=== PATIENT | female | born 1990 | race Caucasian/White ===

== ENCOUNTER 2016-08-09 19:58 | Emergency (ER) | payer OTHER ==
[2016-08-09 21:15] LABS: MEAN CORPUSCULAR HEMOGLOBIN 32.7 pg (27.0-33.0); MEAN CORPUSCULAR VOLUME 87.3 fl (80.0-96.0); RED CELL DISTRIBUTION WIDTH 12.3 % (11.5-14.5); WHITE BLOOD COUNT 11.8 K/mm3 (4.0-10.0)
[2016-08-09 21:19] LABS: MEAN CORPUSCULAR HGB CONC 37.4 g/dl (32.0-36.5)
--- NOTE | 2016-08-09 22:50 | REPUSA ---
CLINICAL HISTORY: , bleeding TECHNIQUE: Pelvic ultrasound COMPARISON: No study for comparison is available at the time of interpretation. Uterus: 8.1 x 4.1 x 4.7 cm. Normal without masses. Endometrial stripe: Early gestational sac at 5 weeks 0 days without yolk sac, without pole. Ovaries: Normal size. No masses. Pelvic fluid: None. IMPRESSION: Gestational sac at 5 weeks 0 days, without yolk sac or pole. Recommended close clin ical correlation with serial beta hCG's to establish viability, and follow-up ultrasound if beta hCG' s are increasing.
--- NOTE | 2016-08-09 23:04 | EDDOCDS ---
Physician Documentation [facility] Name: Natali Tom Age: 26 yrs Sex: Female : 1990 Arrival Date: 08/09/2016 Time: 19:58 Bed I5 / M5 Private MD: Unknown Pcp Disposition: 08/09/16 22:40 Discharged to Home/Self Care. Impression: Abnormal uterine and vaginal bleeding, unspecified, related conditions, unspecified, first trimester, Vaginitis, vulvitis and vulvovaginitis in diseases classified elsewhere - BV. - Condition is Stable. - Discharge Instructions: Bacterial Vaginosis, Threatened Miscarriage. - Prescriptions for Metronidazole 0.75 % Vaginal Gel - insert 37.5 milligrams by VAGINAL route at bedtime for 5 days; 5 tube. - Medication Reconciliation, Local Pharmacy Hours form. - Follow up: Emergency Department; When: As needed; Reason: Worsening of conditions. Follow up: Abram Herrera MD; When: Call to arrange an appointment; Reason: Wound/Symptom Recheck, Recheck today's complaints, Worsening of conditions, Continuance of care. - Problem is new. - Symptoms are unchanged. - Notes: Your HCG level today was 929. Please follow up with Dr. Herrera as discussed. Historical: - Allergies: Amoxicillin (Vomit, Rash); Motrin (Upset stomach); PENICILLINS (Rash, Vomit); SULFA (SULFONAMIDES) (Rash, Vomit); - Home Meds: 1. Vitamin Oral tab 1 tab once daily (Last dose: 08/09/2016 10:30) - PMHx: Anemia; - PSHx: Splenectomy; right knee surgery; Tonsillectomy; Adenoidectomy; Tubes in ears; - Social history: Smoking status: Patient states was never smoker of tobacco. No barriers to communication noted, The patient speaks fluent Sammarinese, Speaks appropriately for age. - Family history: Not pertinent. - : The pt / caregiver states he / she is not on anticoagulants. Home medication list is obtained from the patient. - Exposure Risk Screening:: None identified. 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 6 in. (167.64 cm) (R); Pain 3/10; 22:43 BP 110 / 62 LA Sitting (auto/reg); Pulse 89 MON; Resp 20 S; Temp 98.6(O); Pulse Ox 97% cln on R/A; Pain 0/10; 20:00 Body Mass Index 19.05 (53.52 kg, 167.64 cm) gr2 MDM: 20:24 Undress patient appropriately for examination ordered. cc10 20:24 Set up pelvic ordered. cc10 20:25 Type & Screen Ordered. EDMS 20:25 Complete Blood Count Ordered. EDMS 20:25 Hcg, Serum Quantitative Ordered. EDMS 20:25 Urinalysis Ordered. EDMS 20:25 GC & Chlamydia Amplification Ordered. EDMS 20:25 Urine Culture Ordered. EDMS 20:25 Wet Prep Ordered. EDMS 20:25 US 1st trimester Ordered. EDMS 20:47 Financial registration complete. ks16 20:48 [facility] Payment Agreement was scanned into [employer] and attached to record. ks16 22:01 Complete Blood Count Reviewed. cc10 22:01 Hcg, Serum Quantitative Reviewed. cc10 22:01 Type & Screen Reviewed. cc10 22:28 Wet Prep Reviewed. cc10 Signatures: Dispatcher [employer]Host EDMS Marilou Hernandez RN RN kmg1 Cee Nevarez RN RN jo3 Fuller, Desiree, RN RN dsf Coniski, Colin, PA-C PAJaneen cc10 [place] Nena Fofana, Reg Reg ks16 The chart was reviewed and I authenticate all verbal orders and agree with the evaluation and treatment provided.Attachments: 20:48 [facility] Payment Agreement ks16 MTDD
--- NOTE | 2016-08-09 23:04 | EDDOCDS ---
Nurse's Notes [facility] Name: Natali Tom Age: 26 yrs Sex: Female : 1990 Arrival Date: 08/09/2016 Time: 19:58 Bed I5 / M5 Private MD: Unknown Pcp Diagnosis: Abnormal uterine and vaginal bleeding, unspecified; related conditions, unspecified, first trimester;Vaginitis, vulvitis and vulvovaginitis in diseases classified elsewhere-BV Presentation: 08/09 20:06 Presenting complaint: Patient states: 5 1/2 weeks . Pt states when she went to dsf use the restroom tonight that there was blood. pt denies pain at this time. Risk factors: The patient reports no loss of conciousness prior to arrival. This patient has not had a hysterectomy. This patient has not begun menopause. Adult Sepsis Screening: The patient does not have new or worsening altered mentation. Patient's respiratory rate is less than 22. Systolic blood pressure is greater than 100. Patient has a qSOFA score of 0- Negative Sepsis Screen. Suicide/Homicide risk assessment- the patient denies having any suicidal and/or homicidal ideations and does not present with any other emotional, behavioral or mental health complaints. 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 Transition of care: patient was not received from another setting of care. 20:06 Acuity: CHUYITA Level 3 dsf 20:06 Method Of Arrival: Walkin/Carried/Asstd dsf Triage Assessment: 20:09 General: Appears in no apparent distress, Behavior is appropriate for age, cooperative. dsf Pain: Denies pain. HIV screening NA for this visit Offered previously. : Reports vaginal bleeding that is when she wiped. 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 Vitamin Oral tab 1 tab once daily (Last dose: 08/09/2016 10:30) - PMHx: Anemia; - PSHx: Splenectomy; right knee surgery; Tonsillectomy; Adenoidectomy; Tubes in ears; - Social history: Smoking status: Patient states was never smoker of tobacco. No barriers to communication noted, The patient speaks fluent Ghanaian, Speaks appropriately for age. - Family history: Not pertinent. - : The pt / caregiver states he / she is not on anticoagulants. Home medication list is obtained from the patient. - Exposure Risk Screening:: None identified. Screenin:02 Screening information is obtained from the patient. Fall risk: No risks identified. kmg1 Assistance ADL's: requires no assistance with activities of daily living. Abuse/DV Screen: The patient / caregiver reports he/she is: not in a situation that causes fear, pain or injury. Nutritional screening: No deficits noted. Advance Directives: There is no active DNR order. home support is adequate. Assessment: 22:02 General: Appears in no apparent distress, comfortable, Behavior is appropriate for age, kmg1 cooperative, pleasant. Pain: Denies pain. : Blood noted during pelvic exam. 23:02 Reassessment: Patient appears in no apparent distress at this time. Patient states jo3 feeling better. Patient states symptoms have improved. Discharged at this time. Vital Signs: 20:00 BP 138 / 74; Pulse 102; Resp 18 S; Temp 97.8(O); Pulse Ox 100% on R/A; Weight 53.52 kg gr2 (R); Height 5 ft. 6 in. (167.64 cm) (R); Pain 3/10; 22:43 BP 110 / 62 LA Sitting (auto/reg); Pulse 89 MON; Resp 20 S; Temp 98.6(O); Pulse Ox 97% cln on R/A; Pain 0/10; 20:00 Body Mass Index 19.05 (53.52 kg, 167.64 cm) gr2 Vitals: 20:00 Log In Time: August 09, 2016 at 20:00. gr2 ED Course: 20:00 Patient visited by Thierry Jackson. gr2 20:00 Unknown Pcp is Private Physician. gr2 20:00 Patient moved to Waiting gr2 20:02 Patient visited by Thierry Jackson. gr2 20:02 Patient moved to Pre RCE gr2 20:08 Triage Initiated dsf 20:10 Patient moved to Triage 2 rm 20:15 [facility] cc10 20:15 Ralph Ruiz DO is Attending Physician. cc10 20:15 Patient visited by Drew Noel PA-C. cc10 20:15 Patient visited by Drew Noel PA-C. cc10 20:17 Patient visited by Drew Noel PA-C. cc10 20:43 Complete Blood Count Sent. jmv 20:43 Hcg, Serum Quantitative Sent. jmv 20:43 Type & Screen Sent. jmv 20:43 Urine Culture Sent. jmv 20:48 [facility] Payment Agreement was scanned into [employer] and attached to record. ks16 20:48 Urinalysis Sent. jmv 20:49 GC & Chlamydia Amplification Sent. jmv 21:00 Patient moved to / [facility] 21:35 Patient visited by Cee Nevarez RN. jo3 21:58 Patient visited by Drew Noel PA-C. cc10 22:01 Wet Prep Sent. kmg1 22:01 Assist provider with pelvic exam: Set up pelvic tray. Specimens sent to lab. Performed kmg1 by Drew Noel PA-C Patient tolerated well. 22:02 The patient / caregiver is instructed regarding the plan of care and ED course. kmg1 22:40 Abram Herrera MD is Referral Physician. cc10 22:46 Patient visited by Bella Harrison PCA. cln 22:59 US 1st trimester Returned. EDMS 23:02 No IV's were initiated during this patient's visit. jo3 Order Results: Lab Order: Complete Blood Count; SPEC'M 08/09/16 20:39 Test: WHITE BLOOD COUNT; Value: 11.8; Range: 4.0-10.0; Abnormal: Above high normal; Units: K/mm3; Status: F Test: RED BLOOD COUNT; Value: 4.43; Range: 4.00-5.40; Units: M/mm3; Status: F Test: HEMOGLOBIN; Value: 14.5; Range: 12.0-16.0; Units: g/dl; Status: F Test: HEMATOCRIT; Value: 38.7; Range: 36.0-47.0; Units: %; Status: F Test: MEAN CORPUSCULAR VOLUME; Value: 87.3; Range: 80.0-96.0; Units: fl; Status: F Test: MEAN CORPUSCULAR HEMOGLOBIN; Value: 32.7; Range: 27.0-33.0; Units: pg; Status: F Test: MEAN CORPUSCULAR HGB CONC; Value: 37.4; Range: 32.0-36.5; Abnormal: Above high normal; Units: g/dl; Status: F Test: RED CELL DISTRIBUTION WIDTH; Value: 12.3; Range: 11.5-14.5; Units: %; Status: F Test: PLATELET COUNT, AUTOMATED; Value: 460; Range: 150-450; Abnormal: Above high normal; Units: k/mm3; Status: F Lab Order: Hcg, Serum Quantitative; SPEC'M 08/09/16 20:39 Test: HCG, SERUM QUANTITATIVE; Value: 929; Units: MIU/ML; Status: F Test Note: ; GESTATIONAL AGE APPROXIMATE HCG RANGE (MIU/ML) 0.2-1 WEEK 5-50 1-2 WEEKS 50-500 2-3 WEEKS 100-5,000 3-4 WEEKS 500-10,000 4-5 WEEKS 1,000-50,000 5-6 WEEKS 10,000-100,000 6-8 WEEKS 15,000-200,000 2-3 MONTHS 10,000-100,000 NON FEMALES LESS THAN 3.0 Patient samples may contain human heterophilic antibodies that could react with immunoassays to give falsely elevated or depressed results. This assay has been designed to minimize interference from heterophilic antibodies. Elevated hCG levels have also been associated with trophoblastic disease and nontrophoblastic neoplasms. The possibility of having these diseases should be considered before a diagnosis of is made. This test is not intended for use as a surrogate marker for aiding in the diagnosis or monitoring the treatment of cancer patients. [employer] methodology. Lab Order: Type & Screen; SPEC'08/09/16 20:39 Test: BLOOD TYPE; Value: AB POS; Status: F Test: AB SCREEN (INDIRECT MARCIO)GEL; Value: NEGATIVE; Status: F Lab Order: Urinalysis; SPEC'08/09/16 20:39 Test: APPEARANCE, URINE; Value: HAZY; Range: CLEAR; Status: F Test: COLOR, URINE; Value: YELLOW; Range: YELLOW; Status: F Test: PH,URINE; Value: 6.0; Range: 5.0-9.0; Units: UNITS; Status: F Test: SPECIFIC GRAVITY URINE AUTO; Value: 1.005; Range: 1.002-1.035; Status: F Test: PROTEIN, URINE AUTO; Value: NEGATIVE; Range: NEGATIVE; Units: mg/dL; Status: F Test: GLUCOSE, URINE (UA) AUTO; Value: NEGATIVE; Range: NEGATIVE; Units: mg/dL; Status: F Test: KETONE, URINE AUTO; Value: NEGATIVE; Range: NEGATIVE; Units: mg/dL; Status: F Test: UROBILINOGEN, URINE AUTO; Value: 0.2; Range: 0.0-2.0; Units: mg/dL; Status: F Test: BILIRUBIN, URINE AUTO; Value: NEGATIVE; Range: NEGATIVE; Status: F Test: NITRITE, URINE AUTO; Value: NEGATIVE; Range: NEGATIVE; Status: F Test: LEUKOCYTE ESTERASE, URINE AUTO; Value: NEGATIVE; Range: NEGATIVE; Status: F Test: BLOOD, URINE BLOOD; Value: 2+; Range: NEGATIVE; Abnormal: Above high normal; Status: F Test: WBC, URINE AUTO; Value: 1; Range: 0-3; Units: /HPF; Status: F Test: RBC, URINE AUTO; Value: 2; Range: 0-3; Units: /HPF; Status: F Test: BACTERIA, URINE AUTO; Value: 1+; Range: NEGATIVE; Abnormal: Above high normal; Status: F Test: SQUAMOUS EPITHELIAL CELL UR AU; Value: 3; Range: 0-6; Units: /HPF; Status: F Test: HYALINE CAST, URINE AUTO; Value: 0; Range: 0-1; Units: /LPF; Status: F Lab Order: Wet Prep; SPEC'M 08/09/16 20:39 Test: WET PREP; Value: WET PREP RESULT; Status: F Test: WET PREP; Value: MANY EPITHELIAL CELLS PRESENT; Status: F Test: WET PREP; Value: MODERATE WBC; Status: F Test: WET PREP; Value: MANY SHORT RODS PRESENT; Status: F Test: WET PREP; Value: MANY CLUE CELLS PRESENT; Status: F Test: WET PREP; Value: FEW LONG RODS PRESENT; Status: F Test: WET PREP; Value: FEW RBC; Status: F Test: WET PREP; Value: Comments:; Status: F Test Note: ; Specimen did not meet the 1 hour time limit from collection to examination. Trichomonas vaginalis loses motility quickly therefore, samples need to be examined within 1 hour of collection to optimally identify this organism. Radiology Order: US 1st trimester Test: US 1st trimester REASON FOR EXAMINATION: Bleeding; ; CLINICAL HISTORY: , bleeding; ; TECHNIQUE: Pelvic ultrasound; ; COMPARISON: No study for comparison is available at the time of interpretation.; ; Uterus: 8.1 x 4.1 x 4.7 cm. Normal without masses.; Endometrial stripe: Early gestational sac at 5 weeks 0 days without yolk sac, without pole.; Ovaries: Normal size. No masses.; Pelvic fluid: None.; ; IMPRESSION: Gestational sac at 5 weeks 0 days, without yolk sac or pole. Recommended close clin; ical correlation with serial beta hCG's to establish viability, and follow-up ultrasound if beta hCG'; s are increasing.; ; Outcome: 22:40 Discharge ordered by Provider. cc10 23:02 Discharge Assessment: Patient awake, alert and oriented x 3. No cognitive and/or jo3 functional deficits noted. Patient verbalized understanding of disposition instructions. patient administered narcotics - no. The following High Risk Discharge criteria are identified: None. Discharged to home ambulatory, with significant other. Condition: stable Condition: improved. Discharge instructions given to patient, Instructed on discharge instructions, follow up and referral plans. medication usage, Demonstrated understanding of instructions, medications, Pt was receptive of discharge instructions/ teaching. Prescriptions given X 1. No special radiology studies were completed. Property sent home with patient. 23:03 Patient left the ED. jo3 Signatures: Dispatcher [employer] EDMS Marilou Hernandez RN RN kmg1 Gee Ortiz RN RN cz Helmerci, Jennifer, RN RN jo3 Carolina Lin, DYE BOARDING MACHINE OPERATOR DYE BOARDING MACHINE OPERATOR Cherie Dumont RN RN dsf Thierry Jackson gr2 Drew Noel, PA-C PA-C cc10 [place] Ffoana, Reg Reg ks16 Harrison, Crystal, DYE BOARDING MACHINE OPERATOR DYE BOARDING MACHINE OPERATOR cln Stevenson, Chaim, DYE BOARDING MACHINE OPERATOR DYE BOARDING MACHINE OPERATOR jmv MARLEYD
--- NOTE | 2016-08-12 11:57 | EDDOCDS ---
Physician Documentation [facility] Name: Natali Tom Age: 26 yrs Sex: Female : 1990 Arrival Date: 08/09/2016 Time: 19:58 Bed I5 / M5 Private MD: Unknown Pcp Disposition: 08/09/16 22:40 Discharged to Home/Self Care. Impression: Abnormal uterine and vaginal bleeding, unspecified, related conditions, unspecified, first trimester, Vaginitis, vulvitis and vulvovaginitis in diseases classified elsewhere - BV. - Condition is Stable. - Discharge Instructions: Bacterial Vaginosis, Threatened Miscarriage. - Prescriptions for Metronidazole 0.75 % Vaginal Gel - insert 37.5 milligrams by VAGINAL route at bedtime for 5 days; 5 tube. - Medication Reconciliation, Local Pharmacy Hours form. - Follow up: Emergency Department; When: As needed; Reason: Worsening of conditions. Follow up: Abram Herrera MD; When: Call to arrange an appointment; Reason: Wound/Symptom Recheck, Recheck today's complaints, Worsening of conditions, Continuance of care. - Problem is new. - Symptoms are unchanged. - Notes: Your HCG level today was 929. Please follow up with Dr. Herrera as discussed. Historical: - Allergies: Amoxicillin (Vomit, Rash); Motrin (Upset stomach); PENICILLINS (Rash, Vomit); SULFA (SULFONAMIDES) (Rash, Vomit); - Home Meds: 1. Vitamin Oral tab 1 tab once daily (Last dose: 08/09/2016 10:30) - PMHx: Anemia; - PSHx: Splenectomy; right knee surgery; Tonsillectomy; Adenoidectomy; Tubes in ears; - Social history: Smoking status: Patient states was never smoker of tobacco. No barriers to communication noted, The patient speaks fluent [place] Islander, Speaks appropriately for age. - Family history: Not pertinent. - : The pt / caregiver states he / she is not on anticoagulants. Home medication list is obtained from the patient. - Exposure Risk Screening:: None identified. 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 6 in. (167.64 cm) (R); Pain 3/10; 22:43 BP 110 / 62 LA Sitting (auto/reg); Pulse 89 MON; Resp 20 S; Temp 98.6(O); Pulse Ox 97% cln on R/A; Pain 0/10; 20:00 Body Mass Index 19.05 (53.52 kg, 167.64 cm) gr2 MDM: 20:24 Undress patient appropriately for examination ordered. cc10 20:24 Set up pelvic ordered. cc10 20:25 Type & Screen Ordered. EDMS 20:25 Complete Blood Count Ordered. EDMS 20:25 Hcg, Serum Quantitative Ordered. EDMS 20:25 Urinalysis Ordered. EDMS 20:25 GC & Chlamydia Amplification Ordered. EDMS 20:25 Urine Culture Ordered. EDMS 20:25 Wet Prep Ordered. EDMS 20:25 US 1st trimester Ordered. EDMS 20:47 Financial registration complete. ks 20:48 [facility] Payment Agreement was scanned into [employer] and attached to record. ks16 22:01 Complete Blood Count Reviewed. cc10 22:01 Hcg, Serum Quantitative Reviewed. cc10 22:01 Type & Screen Reviewed. cc10 22:28 Wet Prep Reviewed. cc10 08/10 08:32 T-Sheet-- Draft Copy was scanned into [employer] and attached to record. [facility] Signatures: Dispatcher [employer] EDWY Marilou Hernandez RN RN kmg1 Cee Nevarez RN RN jo3 Fuller, DesireeRN RN Drew Solis, PA-C PA-C cc10 [place] Fof[place], Reg Reg pa16 Jimena Farrell [facility] The chart was reviewed and I authenticate all verbal orders and agree with the evaluation and treatment provided.Attachments: 08/09 20:48 [facility] Payment Agreement 16 08/10 08:32 T-Sheet-- Draft Copy [facility] Chart Complete MTDD
--- NOTE | 2016-08-12 11:57 | EDDOCDS ---
Physician Documentation [facility] Name: Natali Tom Age: 26 yrs Sex: Female : 1990 Arrival Date: 08/09/2016 Time: 19:58 Bed I5 / M5 Private MD: Unknown Pcp Disposition: 08/09/16 22:40 Discharged to Home/Self Care. Impression: Abnormal uterine and vaginal bleeding, unspecified, related conditions, unspecified, first trimester, Vaginitis, vulvitis and vulvovaginitis in diseases classified elsewhere - BV. - Condition is Stable. - Discharge Instructions: Bacterial Vaginosis, Threatened Miscarriage. - Prescriptions for Metronidazole 0.75 % Vaginal Gel - insert 37.5 milligrams by VAGINAL route at bedtime for 5 days; 5 tube. - Medication Reconciliation, Local Pharmacy Hours form. - Follow up: Emergency Department; When: As needed; Reason: Worsening of conditions. Follow up: Abram Herrera MD; When: Call to arrange an appointment; Reason: Wound/Symptom Recheck, Recheck today's complaints, Worsening of conditions, Continuance of care. - Problem is new. - Symptoms are unchanged. - Notes: Your HCG level today was 929. Please follow up with Dr. Herrera as discussed. Historical: - Allergies: Amoxicillin (Vomit, Rash); Motrin (Upset stomach); PENICILLINS (Rash, Vomit); SULFA (SULFONAMIDES) (Rash, Vomit); - Home Meds: 1. Vitamin Oral tab 1 tab once daily (Last dose: 08/09/2016 10:30) - PMHx: Anemia; - PSHx: Splenectomy; right knee surgery; Tonsillectomy; Adenoidectomy; Tubes in ears; - Social history: Smoking status: Patient states was never smoker of tobacco. No barriers to communication noted, The patient speaks fluent Maltese, Speaks appropriately for age. - Family history: Not pertinent. - : The pt / caregiver states he / she is not on anticoagulants. Home medication list is obtained from the patient. - Exposure Risk Screening:: None identified. 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 6 in. (167.64 cm) (R); Pain 3/10; 22:43 BP 110 / 62 LA Sitting (auto/reg); Pulse 89 MON; Resp 20 S; Temp 98.6(O); Pulse Ox 97% cln on R/A; Pain 0/10; 20:00 Body Mass Index 19.05 (53.52 kg, 167.64 cm) gr2 MDM: 20:24 Undress patient appropriately for examination ordered. cc10 20:24 Set up pelvic ordered. cc10 20:25 Type & Screen Ordered. EDMS 20:25 Complete Blood Count Ordered. EDMS 20:25 Hcg, Serum Quantitative Ordered. EDMS 20:25 Urinalysis Ordered. EDMS 20:25 GC & Chlamydia Amplification Ordered. EDMS 20:25 Urine Culture Ordered. EDMS 20:25 Wet Prep Ordered. EDMS 20:25 US 1st trimester Ordered. EDMS 20:47 Financial registration complete. ks 20:48 [facility] Payment Agreement was scanned into [employer] and attached to record. ks16 22:01 Complete Blood Count Reviewed. cc10 22:01 Hcg, Serum Quantitative Reviewed. cc10 22:01 Type & Screen Reviewed. cc10 22:28 Wet Prep Reviewed. cc10 08/10 08:32 T-Sheet-- Draft Copy was scanned into [employer] and attached to record. [facility] Signatures: Dispatcher [employer] EDNE Marilou Hernandez RN RN kmg1 Cee Nevarez RN RN jo3 Fuller, DesireeRN RN Drew Solis, PA-C PA-C cc10 [place] Fof[place], Reg Reg dc16 Jimena Farrell [facility] The chart was reviewed and I authenticate all verbal orders and agree with the evaluation and treatment provided.Attachments: 08/09 20:48 [facility] Payment Agreement 16 08/10 08:32 T-Sheet-- Draft Copy [facility] Chart Complete MTDD
--- NOTE | 2016-08-12 11:57 | EDDOCDS ---
Nurse's Notes [facility] Name: Natali Tom Age: 26 yrs Sex: Female : 1990 Arrival Date: 08/09/2016 Time: 19:58 Bed I5 / M5 Private MD: Unknown Pcp Diagnosis: Abnormal uterine and vaginal bleeding, unspecified; related conditions, unspecified, first trimester;Vaginitis, vulvitis and vulvovaginitis in diseases classified elsewhere-BV Presentation: 08/09 20:06 Presenting complaint: Patient states: 5 1/2 weeks . Pt states when she went to dsf use the restroom tonight that there was blood. pt denies pain at this time. Risk factors: The patient reports no loss of conciousness prior to arrival. This patient has not had a hysterectomy. This patient has not begun menopause. Adult Sepsis Screening: The patient does not have new or worsening altered mentation. Patient's respiratory rate is less than 22. Systolic blood pressure is greater than 100. Patient has a qSOFA score of 0- Negative Sepsis Screen. Suicide/Homicide risk assessment- the patient denies having any suicidal and/or homicidal ideations and does not present with any other emotional, behavioral or mental health complaints. Status: Patient is not a community service manager or dependent. Transition of care: patient was not received from another setting of care. 20:06 Acuity: CHUYITA Level 3 dsf 20:06 Method Of Arrival: Walkin/Carried/Asstd dsf Triage Assessment: 20:09 General: Appears in no apparent distress, Behavior is appropriate for age, cooperative. dsf Pain: Denies pain. HIV screening NA for this visit Offered previously. : Reports vaginal bleeding that is when she wiped. NICKER AND BREAKER: 20:09 LMP 07/01/2016, Verified, EDC 04/07/2017, Gestational age from LMP: 5 weeks 5 dsf days Historical: - Allergies: Amoxicillin (Vomit, Rash); Motrin (Upset stomach); PENICILLINS (Rash, Vomit); SULFA (SULFONAMIDES) (Rash, Vomit); - Home Meds: 1. Vitamin Oral tab 1 tab once daily (Last dose: 08/09/2016 10:30) - PMHx: Anemia; - PSHx: Splenectomy; right knee surgery; Tonsillectomy; Adenoidectomy; Tubes in ears; - Social history: Smoking status: Patient states was never smoker of tobacco. No barriers to communication noted, The patient speaks fluent Beninese, Speaks appropriately for age. - Family history: Not pertinent. - : The pt / caregiver states he / she is not on anticoagulants. Home medication list is obtained from the patient. - Exposure Risk Screening:: None identified. Screenin:02 Screening information is obtained from the patient. Fall risk: No risks identified. kmg1 Assistance ADL's: requires no assistance with activities of daily living. Abuse/DV Screen: The patient / caregiver reports he/she is: not in a situation that causes fear, pain or injury. Nutritional screening: No deficits noted. Advance Directives: There is no active DNR order. home support is adequate. Assessment: 22:02 General: Appears in no apparent distress, comfortable, Behavior is appropriate for age, kmg1 cooperative, pleasant. Pain: Denies pain. : Blood noted during pelvic exam. 23:02 Reassessment: Patient appears in no apparent distress at this time. Patient states jo3 feeling better. Patient states symptoms have improved. Discharged at this time. Vital Signs: 20:00 BP 138 / 74; Pulse 102; Resp 18 S; Temp 97.8(O); Pulse Ox 100% on R/A; Weight 53.52 kg gr2 (R); Height 5 ft. 6 in. (167.64 cm) (R); Pain 3/10; 22:43 BP 110 / 62 LA Sitting (auto/reg); Pulse 89 MON; Resp 20 S; Temp 98.6(O); Pulse Ox 97% cln on R/A; Pain 0/10; 20:00 Body Mass Index 19.05 (53.52 kg, 167.64 cm) gr2 Vitals: 20:00 Log In Time: August 09, 2016 at 20:00. gr2 ED Course: 20:00 Patient visited by Thierry Jackson. gr2 20:00 Unknown Pcp is Private Physician. gr2 20:00 Patient moved to Waiting gr2 20:02 Patient visited by Thierry Jackson. gr2 20:02 Patient moved to Pre RCE gr2 20:08 Triage Initiated dsf 20:10 Patient moved to Triage 2 rm 20:15 [facility] cc[facility] 20:15 Ralph Ruiz DO is Attending Physician. cc10 20:15 Patient visited by Drew Noel PA-C. cc10 20:15 Patient visited by Drew Noel PA-C. cc10 20:17 Patient visited by Drew Noel PA-C. cc10 20:43 Complete Blood Count Sent. jmv 20:43 Hcg, Serum Quantitative Sent. jmv 20:43 Type & Screen Sent. jmv 20:43 Urine Culture Sent. jmv 20:48 [facility] [place] Payment Agreement was scanned into [employer] and attached to record. ks16 20:48 Urinalysis Sent. jmv 20:49 GC & Chlamydia Amplification Sent. jmv 21:00 Patient moved to [address] 21:35 Patient visited by Cee Nevarez RN. jo3 21:58 Patient visited by Drew Noel PA-C. cc10 22:01 Wet Prep Sent. kmg1 22:01 Assist provider with pelvic exam: Set up pelvic tray. Specimens sent to lab. Performed kmg1 by Drew Noel PA-C Patient tolerated well. 22:02 The patient / caregiver is instructed regarding the plan of care and ED course. kmg1 22:40 Abram Herrera MD is Referral Physician. cc10 22:46 Patient visited by Bella Harrison PCA. cln 22:59 US 1st trimester Returned. EDMS 23:02 No IV's were initiated during this patient's visit. jo3 08/10 08:32 T-Sheet-- Draft Copy was scanned into [employer] and attached to record. [facility] Order Results: Lab Order: Complete Blood Count; SPEC'M 08/09/16 20:39 Test: WHITE BLOOD COUNT; Value: 11.8; Range: 4.0-10.0; Abnormal: Above high normal; Units: K/mm3; Status: F Test: RED BLOOD COUNT; Value: 4.43; Range: 4.00-5.40; Units: M/mm3; Status: F Test: HEMOGLOBIN; Value: 14.5; Range: 12.0-16.0; Units: g/dl; Status: F Test: HEMATOCRIT; Value: 38.7; Range: 36.0-47.0; Units: %; Status: F Test: MEAN CORPUSCULAR VOLUME; Value: 87.3; Range: 80.0-96.0; Units: fl; Status: F Test: MEAN CORPUSCULAR HEMOGLOBIN; Value: 32.7; Range: 27.0-33.0; Units: pg; Status: F Test: MEAN CORPUSCULAR HGB CONC; Value: 37.4; Range: 32.0-36.5; Abnormal: Above high normal; Units: g/dl; Status: F Test: RED CELL DISTRIBUTION WIDTH; Value: 12.3; Range: 11.5-14.5; Units: %; Status: F Test: PLATELET COUNT, AUTOMATED; Value: 460; Range: 150-450; Abnormal: Above high normal; Units: k/mm3; Status: F Lab Order: Hcg, Serum Quantitative; SPEC'M 08/09/16 20:39 Test: HCG, SERUM QUANTITATIVE; Value: 929; Units: MIU/ML; Status: F Test Note: ; GESTATIONAL AGE APPROXIMATE HCG RANGE (MIU/ML) 0.2-1 WEEK 5-50 1-2 WEEKS 50-500 2-3 WEEKS 100-5,000 3-4 WEEKS 500-10,000 4-5 WEEKS 1,000-50,000 5-6 WEEKS 10,000-100,000 6-8 WEEKS 15,000-200,000 2-3 MONTHS 10,000-100,000 NON FEMALES LESS THAN 3.0 Patient samples may contain human heterophilic antibodies that could react with immunoassays to give falsely elevated or depressed results. This assay has been designed to minimize interference from heterophilic antibodies. Elevated hCG levels have also been associated with trophoblastic disease and nontrophoblastic neoplasms. The possibility of having these diseases should be considered before a diagnosis of is made. This test is not intended for use as a surrogate marker for aiding in the diagnosis or monitoring the treatment of cancer patients. [employer] methodology. Lab Order: Type & Screen; SPEC'M 08/09/16 20:39 Test: BLOOD TYPE; Value: AB POS; Status: F Test: AB SCREEN (INDIRECT MARCIO)GEL; Value: NEGATIVE; Status: F Lab Order: Urinalysis; SPEC'M 08/09/16 20:39 Test: APPEARANCE, URINE; Value: HAZY; Range: CLEAR; Status: F Test: COLOR, URINE; Value: YELLOW; Range: YELLOW; Status: F Test: PH,URINE; Value: 6.0; Range: 5.0-9.0; Units: UNITS; Status: F Test: SPECIFIC GRAVITY URINE AUTO; Value: 1.005; Range: 1.002-1.035; Status: F Test: PROTEIN, URINE AUTO; Value: NEGATIVE; Range: NEGATIVE; Units: mg/dL; Status: F Test: GLUCOSE, URINE (UA) AUTO; Value: NEGATIVE; Range: NEGATIVE; Units: mg/dL; Status: F Test: KETONE, URINE AUTO; Value: NEGATIVE; Range: NEGATIVE; Units: mg/dL; Status: F Test: UROBILINOGEN, URINE AUTO; Value: 0.2; Range: 0.0-2.0; Units: mg/dL; Status: F Test: BILIRUBIN, URINE AUTO; Value: NEGATIVE; Range: NEGATIVE; Status: F Test: NITRITE, URINE AUTO; Value: NEGATIVE; Range: NEGATIVE; Status: F Test: LEUKOCYTE ESTERASE, URINE AUTO; Value: NEGATIVE; Range: NEGATIVE; Status: F Test: BLOOD, URINE BLOOD; Value: 2+; Range: NEGATIVE; Abnormal: Above high normal; Status: F Test: WBC, URINE AUTO; Value: 1; Range: 0-3; Units: /HPF; Status: F Test: RBC, URINE AUTO; Value: 2; Range: 0-3; Units: /HPF; Status: F Test: BACTERIA, URINE AUTO; Value: 1+; Range: NEGATIVE; Abnormal: Above high normal; Status: F Test: SQUAMOUS EPITHELIAL CELL UR AU; Value: 3; Range: 0-6; Units: /HPF; Status: F Test: HYALINE CAST, URINE AUTO; Value: 0; Range: 0-1; Units: /LPF; Status: F Lab Order: Urine Culture; SPEC'M 08/09/16 20:39 Test: URINE CULTURE; Value: URINE CULTURE RESULT NO GROWTH CLINICAL SIGNIFICANCE 1 ORGANISM; Status: F Lab Order: Wet Prep; SPEC'M 08/09/16 20:39 Test: WET PREP; Value: WET PREP RESULT; Status: F Test: WET PREP; Value: MANY EPITHELIAL CELLS PRESENT; Status: F Test: WET PREP; Value: MODERATE WBC; Status: F Test: WET PREP; Value: MANY SHORT RODS PRESENT; Status: F Test: WET PREP; Value: MANY CLUE CELLS PRESENT; Status: F Test: WET PREP; Value: FEW LONG RODS PRESENT; Status: F Test: WET PREP; Value: FEW RBC; Status: F Test: WET PREP; Value: Comments:; Status: F Test Note: ; Specimen did not meet the 1 hour time limit from collection to examination. Trichomonas vaginalis loses motility quickly therefore, samples need to be examined within 1 hour of collection to optimally identify this organism. Lab Order: GC & Chlamydia Amplification; SPEC'M 08/09/16 20:39 Test: CHLAMYDIA DNA AMPLIFICATION; Value: NEGATIVE; Range: NEGATIVE; Status: F Test: GC DNA AMPLIFICATION; Value: NEGATIVE; Range: NEGATIVE; Status: F Radiology Order: US 1st trimester Test: US 1st trimester REASON FOR EXAMINATION: Bleeding; ; CLINICAL HISTORY: , bleeding; ; TECHNIQUE: Pelvic ultrasound; ; COMPARISON: No study for comparison is available at the time of interpretation.; ; Uterus: 8.1 x 4.1 x 4.7 cm. Normal without masses.; Endometrial stripe: Early gestational sac at 5 weeks 0 days without yolk sac, without pole.; Ovaries: Normal size. No masses.; Pelvic fluid: None.; ; IMPRESSION: Gestational sac at 5 weeks 0 days, without yolk sac or pole. Recommended close clin; ical correlation with serial beta hCG's to establish viability, and follow-up ultrasound if beta hCG'; s are increasing.; ; Outcome: 08/09 22:40 Discharge ordered by Provider. cc10 23:02 Discharge Assessment: Patient awake, alert and oriented x 3. No cognitive and/or jo3 functional deficits noted. Patient verbalized understanding of disposition instructions. patient administered narcotics - no. The following High Risk Discharge criteria are identified: None. Discharged to home ambulatory, with significant other. Condition: stable Condition: improved. Discharge instructions given to patient, Instructed on discharge instructions, follow up and referral plans. medication usage, Demonstrated understanding of instructions, medications, Pt was receptive of discharge instructions/ teaching. Prescriptions given X 1. No special radiology studies were completed. Property sent home with patient. 23:03 Patient left the ED. jo3 Signatures: Dispatcher [employer] EDMS Marilou Hernandez, RN RN kmg1 Gee Ortiz RN RN cz Helmerci, Jennifer, RN RN jo3 Riley, [place], FLIGHT COMMUNICATIONS OPERATOR FLIGHT COMMUNICATIONS OPERATOR Cherie Dumont RN RN dsf Thierry Jackson gr2 Drew Noel, PA-C PA-C cc10 [place], Reg Reg ks16 Bella Harrison, FLIGHT COMMUNICATIONS OPERATOR FLIGHT COMMUNICATIONS OPERATOR sven Farrell, Chaim Casey, FLIGHT COMMUNICATIONS OPERATOR FLIGHT COMMUNICATIONS OPERATOR jmv Chart Complete MTDD
== END 2016-08-09 23:03 | disposition home or self-care (01) ==
LOC: M ED 19:58
DX: O20.0 Threatened abortion (principal); O23.591 Infection of other part of genital tract in pregnancy, first trimester; O99.011 Anemia complicating pregnancy, first trimester; Z3A.01 Less than 8 weeks gestation of pregnancy

== ENCOUNTER → 2016-09-01 | Outpatient (REF) | payer OTHER | LOC: M LAB REF 12:38 | PROVIDERS: ATTEND Advanced Practice Midwife | DX: O03.4 Incomplete spontaneous abortion without complication (principal) ==

== ENCOUNTER → 2016-10-20 | Outpatient (REF) | payer OTHER | LOC: M LAB REF 20:50 | PROVIDERS: ATTEND Physician Assistant | DX: J02.9 Acute pharyngitis, unspecified (principal) ==

== ENCOUNTER → 2024-02-09 | Outpatient (CLI) | payer OTHER ==
[2024-02-09 17:32] LABS: HEMATOCRIT 40.6 % (36.0-47.0); HEMOGLOBIN 14.6 g/dl (12.0-15.5); MEAN CORPUSCULAR HEMOGLOBIN 32.6 pg (27.0-33.0); MEAN CORPUSCULAR VOLUME 90.6 fl (80.0-96.0); PLATELET COUNT, AUTOMATED 473 10^3/uL (150-450); RED BLOOD COUNT 4.48 10^6/uL (4.00-5.40); WHITE BLOOD COUNT 15.6 10^3/uL (4.0-10.0)
[2024-02-09 18:26] LABS: HIV 1&2 SCREEN NEGATIVE (NEGATIVE)
[2024-02-09 18:34] LABS: HEPATITIS C VIRUS ABY INDEX 0.03 INDEX (<0.8)
[2024-02-09 19:35] LABS: GC DNA AMPLIFICATION NEGATIVE (NEGATIVE)
== END ==
LOC: M PLALAB 15:38
PROVIDERS: ATTEND Advanced Practice Midwife
DX: Z34.91 Encounter for supervision of normal pregnancy, unspecified, first trimester (principal)

== ENCOUNTER → 2024-03-28 | Outpatient (CLI) | payer OTHER | LOC: M WHC 09:48 | PROVIDERS: ATTEND Obstetrics & Gynecology | DX: Z34.92 Encounter for supervision of normal pregnancy, unspecified, second trimester (principal); Z3A.19 19 weeks gestation of pregnancy ==

== ENCOUNTER → 2024-05-17 | Outpatient (CLI) | payer OTHER | LOC: M WHC 14:55 | PROVIDERS: ATTEND Obstetrics & Gynecology | DX: O44.40 Low lying placenta NOS or without hemorrhage, unspecified trimester (principal); Z3A.26 26 weeks gestation of pregnancy ==

== ENCOUNTER → 2024-05-17 | Outpatient (CLI) | payer OTHER ==
[2024-05-17 17:54] LABS: HEMATOCRIT 39.8 % (36.0-47.0); HEMOGLOBIN 13.9 g/dl (12.0-15.5); MEAN CORPUSCULAR HEMOGLOBIN 32.5 pg (27.0-33.0); MEAN CORPUSCULAR HGB CONC 34.9 g/dl (32.0-36.5); PLATELET COUNT, AUTOMATED 455 10^3/uL (150-450); RED BLOOD COUNT 4.28 10^6/uL (4.00-5.40); WHITE BLOOD COUNT 13.1 10^3/uL (4.0-10.0)
[2024-05-17 18:19] LABS: GLUCOSE CHALLENGE TEST 1 HOUR 110 MG/DL (LESS THAN 140)
[2024-05-17 18:46] LABS: GC DNA AMPLIFICATION NEGATIVE (NEGATIVE)
[2024-05-17 18:55] LABS: HIV 1&2 SCREEN NEGATIVE (NEGATIVE)
[2024-05-17 19:02] LABS: HEPATITIS C VIRUS ABY INDEX 0.07 INDEX (<0.8)
== END ==
LOC: M PLALAB 14:53
PROVIDERS: ATTEND Obstetrics & Gynecology
DX: Z34.92 Encounter for supervision of normal pregnancy, unspecified, second trimester (principal); Z3A.00 Weeks of gestation of pregnancy not specified

== ENCOUNTER 2024-05-23 17:19 | Outpatient (CLI) | payer OTHER ==
[~2024-05-23] VITALS: Ht 175.3 cm; Wt 69.0 kg
[2024-05-23 17:39] VITALS: BP 110/53
[2024-05-23] MEDS ORDERED: PRENTAB9 PO (17:51)
[2024-05-23 18:10] VITALS: O2SAT 97
[2024-05-23 18:25] VITALS: O2SAT 97
[2024-05-23 18:30] VITALS: O2SAT 96
[2024-05-23 18:45] VITALS: O2SAT 97
[2024-05-23 18:47] VITALS: BP 107/59; O2SAT 97
== END 2024-05-23 18:50 | disposition home or self-care (01) ==
LOC: M LDO 17:19
PROVIDERS: ATTEND Advanced Practice Midwife
DX: O26.892 Other specified pregnancy related conditions, second trimester (principal); O26.22 Pregnancy care for patient with recurrent pregnancy loss, second trimester; O99.119 Other diseases of the blood and blood-forming organs and certain disorders involving the immune mechanism complicating pregnancy, unspecified trimester; R06.02 Shortness of breath; R51.9 Headache, unspecified; R05.9 Cough, unspecified; D75.838 Other thrombocytosis; Z3A.27 27 weeks gestation of pregnancy
CPT/HCPCS: 59025; 87486; 87581; 87633; 87798; G0463

== ENCOUNTER → 2024-05-23 | Emergency (ER) | payer OTHER ==
[~2024-05-23] VITALS: Ht 175.3 cm; Wt 68.8 kg
[~2024-05-23] MED LIST: PRENTAB9 PO
[2024-05-23 19:03] VITALS: BP 125/61; TEMP 98.6
[2024-05-23 19:13] VITALS: O2SAT 99
== END | disposition left against medical advice (07) ==
LOC: M ED 18:58
DX: Z53.21 Procedure and treatment not carried out due to patient leaving prior to being seen by health care provider (principal)

== ENCOUNTER → 2024-06-13 | Outpatient (CLI) | payer OTHER ==
[2024-06-13 12:52] LABS: BASO # 0.1 10^3/uL (0.0-0.2); BASO % 0.7 % (0.0-1.0); EOS # 0.1 10^3/uL (0.0-0.5); EOS % 1.2 % (0.0-3.0); HEMATOCRIT 37.6 % (36.0-47.0); HEMOGLOBIN 13.2 g/dl (12.0-15.5); LYMPH # 2.3 10^3/uL (1.5-5.0); LYMPH % 19.9 % (24.0-44.0); MEAN CORPUSCULAR HEMOGLOBIN 32.8 pg (27.0-33.0); MEAN CORPUSCULAR HGB CONC 35.1 g/dl (32.0-36.5); MEAN CORPUSCULAR VOLUME 93.3 fl (80.0-96.0); MONO # 0.8 10^3/uL (0.0-0.8); MONO % 7.1 % (2.0-8.0); NEUTROPHILS # 8.2 10^3/uL (1.5-8.5); NEUTROPHILS % 70.4 % (36.0-66.0); PLATELET COUNT, AUTOMATED 415 10^3/uL (150-450); RED BLOOD COUNT 4.03 10^6/uL (4.00-5.40); WHITE BLOOD COUNT 11.6 10^3/uL (4.0-10.0)
[2024-06-13 13:27] LABS: FERRITIN 9.3 NG/ML (7.3-270.7)
[2024-06-13 13:28] LABS: PERCENT SATURATION 11.6 % (13.2-45.0)
== END ==
LOC: M PLALAB 11:20
PROVIDERS: ATTEND Internal Medicine Hematology
DX: D75.839 Thrombocytosis, unspecified (principal)

== ENCOUNTER 2024-06-27 14:45 | Outpatient (CLI) | payer OTHER ==
[~2024-06-27] VITALS: Ht 175.3 cm; Wt 69.5 kg
[~2024-06-27 14:45] MED LIST changes: +ALBUTEROL SULFATE 2.5MG/0.5ML INH NEB SOLN INH PRN; +EPINEPHrine INJ 1 MG/ML 1ML AMP IM PRN; +NS 1,000 ML IV SCH; +diphenhydrAMINE 50MG/ML VIAL IV PRN; +methylPREDNISolone 125MG 2ML VIAL IV PRN
[2024-06-27 15:00] VITALS: BP 118/59; O2SAT 96
[2024-06-27] MEDS: IRON SUCROSE 300 MG in NS 250 ML IV ONE (15:40)
[2024-06-27 17:33] VITALS: BP 131/69; O2SAT 97
== END 2024-06-27 17:35 ==
LOC: M INFU 14:45
PROVIDERS: ATTEND Internal Medicine Hematology
DX: D50.9 Iron deficiency anemia, unspecified (principal); Z88.0 Allergy status to penicillin
CPT/HCPCS: 96365; 96366; J1756

== ENCOUNTER 2024-07-04 12:30 | Outpatient (CLI) | payer OTHER ==
[~2024-07-04] VITALS: Ht 175.3 cm; Wt 69.5 kg
[2024-07-04 12:30] VITALS: BP 145/70; O2SAT 100
[2024-07-04] MEDS: IRON SUCROSE 300 MG in NS 250 ML OVER 90 MIN. IV ONE (13:25)
[2024-07-04 15:10] VITALS: BP 115/61; O2SAT 94
== END 2024-07-04 15:10 ==
LOC: M INFU 12:30
PROVIDERS: ATTEND Internal Medicine Hematology
DX: D50.9 Iron deficiency anemia, unspecified (principal); Z88.0 Allergy status to penicillin
CPT/HCPCS: 96365; 96366; J1756

== ENCOUNTER → 2024-07-25 | Outpatient (REF) | payer OTHER ==
[~2024-07-25] MED LIST changes: -ALBUTEROL SULFATE 2.5MG/0.5ML INH NEB SOLN INH PRN; -EPINEPHrine INJ 1 MG/ML 1ML AMP IM PRN; -NS 1,000 ML IV SCH; -diphenhydrAMINE 50MG/ML VIAL IV PRN; -methylPREDNISolone 125MG 2ML VIAL IV PRN
== END ==
LOC: M SFHCWAGY 16:50
PROVIDERS: ATTEND Obstetrics & Gynecology
DX: Z36.85 Encounter for antenatal screening for Streptococcus B (principal); Z3A.36 36 weeks gestation of pregnancy

== ENCOUNTER → 2024-07-28 | Outpatient (CLI) | payer OTHER | LOC: M RAD 09:17 | PROVIDERS: ATTEND Obstetrics & Gynecology | DX: O26.843 Uterine size-date discrepancy, third trimester (principal); Z3A.36 36 weeks gestation of pregnancy ==

== ENCOUNTER → 2024-08-01 | Outpatient (CLI) | payer OTHER ==
[2024-08-01 14:53] LABS: BASO # 0.1 10^3/uL (0.0-0.2); BASO % 0.7 % (0.0-1.0); EOS # 0.1 10^3/uL (0.0-0.5); EOS % 0.9 % (0.0-3.0); HEMATOCRIT 39.4 % (36.0-47.0); HEMOGLOBIN 13.9 g/dl (12.0-15.5); LYMPH # 1.9 10^3/uL (1.5-5.0); LYMPH % 18.9 % (24.0-44.0); MEAN CORPUSCULAR HEMOGLOBIN 32.6 pg (27.0-33.0); MEAN CORPUSCULAR HGB CONC 35.3 g/dl (32.0-36.5); MEAN CORPUSCULAR VOLUME 92.5 fl (80.0-96.0); MONO # 0.8 10^3/uL (0.0-0.8); MONO % 7.8 % (2.0-8.0); NEUTROPHILS # 7.2 10^3/uL (1.5-8.5); PLATELET COUNT, AUTOMATED 386 10^3/uL (150-450); RED BLOOD COUNT 4.26 10^6/uL (4.00-5.40); WHITE BLOOD COUNT 10.2 10^3/uL (4.0-10.0)
== END ==
LOC: M PLALAB 12:11
PROVIDERS: ATTEND Internal Medicine Hematology
DX: E61.1 Iron deficiency (principal)

== ENCOUNTER 2024-08-14 16:47 | Inpatient (IN) | payer OTHER ==
[2024-08-14] VITALS (17 sets, daily range): BP systolic 81–144; BP diastolic 49–85
[~2024-08-14] VITALS: Ht 167.6 cm; Wt 71.6 kg
[2024-08-14] MEDS ORDERED: HOME MED LIST COMPLETE! XX SCH (17:10)
[2024-08-14 20:00] LABS: HEMATOCRIT 44.4 % (36.0-47.0); HEMOGLOBIN 15.6 g/dl (12.0-15.5); MEAN CORPUSCULAR HEMOGLOBIN 32.6 pg (27.0-33.0); MEAN CORPUSCULAR HGB CONC 35.1 g/dl (32.0-36.5); MEAN CORPUSCULAR VOLUME 92.7 fl (80.0-96.0); PLATELET COUNT, AUTOMATED 418 10^3/uL (150-450); RED BLOOD COUNT 4.79 10^6/uL (4.00-5.40); WHITE BLOOD COUNT 17.5 10^3/uL (4.0-10.0)
[2024-08-14] MEDS ORDERED: METHYLERGONOVINE MALEATE 0.2MG/ML 1ML VIAL IM PRN (20:20)
[2024-08-14] MEDS ORDERED: LIDOCAINE 1% MDV 20ML VIAL INFIL PRN (20:20)
[2024-08-14] MEDS ORDERED: CARBOPROST TROMETHAMINE 250 MCG/ML AMP IM PRN (20:20)
[2024-08-14] MEDS ORDERED: TRANEXAMIC ACID INJection 1,000 MG in NS 100 ML IV PRN (20:20)
[2024-08-14] MEDS ORDERED: OXYTOCIN DRIP 30 UNITS in IV 1 EA IV PRN (20:20)
[2024-08-14] MEDS ORDERED: ONDANSETRON 4MG 2ML VIAL IV PRN (20:25)
[2024-08-14] MEDS ORDERED: ePHEDrine SULFATE 25 MG/5 ML(5MG/ML) SYRINGE IVP PRN (20:25)
[2024-08-14] MEDS ORDERED: EPIDURAL/PCA KEYS XX PRN (20:25)
[2024-08-14] MEDS ORDERED: diphenhydrAMINE 50MG/ML VIAL IV PRN (20:25)
[2024-08-14] MEDS ORDERED: NALOXONE INJ 0.4MG/1ML VIAL IV PRN (20:25)
[2024-08-14] MEDS ORDERED: LR 500 ML IV PRN (20:25)
[2024-08-14] MEDS: LR 1,000 ML IV SCH (20:46)
[2024-08-14] MEDS: FENTANYL/ROPIVACAINE/NACL BAG 100 ML EPIDURAL SCH (20:47)
[2024-08-14 21:03] LABS: HEPATITIS C VIRUS ABY INDEX 0.03 INDEX (<0.8)
[2024-08-14] MEDS ORDERED: ANUSOL HC CREAM 30GM TOP PRN (22:15)
[2024-08-14] MEDS ORDERED: OXYTOCIN DRIP 30 UNITS in IV 1 EA IV SCH (22:15)
[2024-08-14] MEDS ORDERED: METHYLERGONOVINE MALEATE 0.2 MG TAB PO PRN (22:15)
[2024-08-14] MEDS ORDERED: CALCIUM CARBONATE 500 MG CHEW U/D PO PRN (22:15)
[2024-08-14] MEDS ORDERED: DIBUCAINE 1% OINTMENT 30GM TOP PRN (22:15)
[2024-08-14] MEDS ORDERED: MOM 30ML SUSPENSION UDC PO PRN (22:15)
[2024-08-14] MEDS ORDERED: ACETAMINOPHEN 325 MG TAB PO PRN (22:15)
[2024-08-14] MEDS ORDERED: RHOGAM 300MCG (1500IU) INJ IM SCH (22:15)
[2024-08-14] MEDS ORDERED: IBUPROFEN 600MG TAB PO PRN (22:15)
[2024-08-15 00:09] VITALS: BP 115/58; O2SAT 94
[2024-08-15] MEDS: IBUPROFEN 800 MG TAB PO PRN (03:29)
[2024-08-15] MEDS: ACETAMINOPHEN 500 MG TAB PO PRN (05:31)
[2024-08-15 06:00] VITALS: BP 105/66; O2SAT 97
[2024-08-15] MEDS: PRENATAL VITAMINS CHEWABLE TABLET PO SCH (08:16)
[2024-08-15 18:00] VITALS: BP 102/53; O2SAT 97
[2024-08-16 05:35] VITALS: BP 102/56; O2SAT 100
[2024-08-16] MEDS: DOCUSATE SODIUM 100MG CAPSULE PO PRN (08:14)
[2024-08-16] MEDS: MEASLES,MUMPS,RUBELLA VACCINE INJ (MMR-II) SC.IMMUN ONE (09:00)
[2024-08-16] MEDS ORDERED: HOME MED LIST COMPLETE! XX SCH (09:25)
== END 2024-08-16 12:25 | disposition home or self-care (01) | DRG 560 ==
LOC: M LDO 16:47 → M LDI 19:30 → M OBS 08-15 00:08
PROVIDERS: ADMIT Obstetrics & Gynecology; ATTEND Obstetrics & Gynecology
PROC: 10E0XZZ Delivery of Products of Conception, External Approach (ICD-10-PCS; principal; 2024-08-14)
DX: O80 Encounter for full-term uncomplicated delivery (principal); Z37.0 Single live birth; Z3A.39 39 weeks gestation of pregnancy

== ENCOUNTER → 2025-04-17 | Outpatient (REF) | payer OTHER, MEDICAID | LOC: M LAB REF 11:43 | PROVIDERS: ATTEND Physician Assistant Medical | DX: B34.9 Viral infection, unspecified (principal) ==